=== PATIENT | male | born 1935 | race Hispanic/Latino ===

== ENCOUNTER 2017-06-09 06:31 | Observation (INO) | payer MEDICARE, OTHER ==
[~2017-06-09] VITALS: Ht 172.7 cm; Wt 100.7 kg
--- OUTSIDE RECORDS SUMMARY | 2017-06-09 06:33 | XMS REPORT | Clinical Summary ---
Author Author [facility] Address Unknown Phone Unavailable Care Team Providers Care Environmental Emergencies Assistant Name Role Phone PCP Unavailable Allergies Active Allergy Reactions Severity Noted Date Comments Codeine Nausea And Vomiting Medium 08/23/2015 Pt reports that he is NOT allergic to tylenol, just the codeine Current Medications Prescription Sig. Disp. Refills Start End Date Status Date cloNIDine (CATAPRES-TTS) Place 1 patch onto the Active 0.3 mg/24 hr patch skin once a week. aspirin 81 MG EC tablet Take 81 mg by mouth Active daily. isosorbide dinitrate Take 15 mg by mouth Active (ISORDIL) 30 MG tablet daily. clopidogrel (PLAVIX) 75 Take 75 mg by mouth Active mg tablet daily. amLODIPine (NORVASC) 5 MG Take 5 mg by mouth daily. Active tablet metoprolol (TOPROL-XL) 50 Take 200 mg by mouth Active MG 24 hr tablet daily . omeprazole (PRILOSEC) 20 Take 20 mg by mouth Active MG capsule daily. acarbose (PRECOSE) 25 MG Take 25 mg by mouth 3 Active tablet (three) times daily with meals. atorvastatin (LIPITOR) 40 Take 1 tablet (40 mg 30 tablet 5 08/27/19 08/27/19 MG tablet total) by mouth nightly. 16 17 Active Problems Problem Noted Date Abnormal myocardial perfusion study 08/26/2015 CAD (coronary artery disease) 08/15/2015 Essential hypertension, malignant 08/15/2015 Family History Medical History Relation Name Comments Coronary artery disease Brother Heart disease Father Stroke Father Heart attack Mother Thyroid disease Sister Relation Name Status Comments Brother Father Mother Sister Social History Tobacco Use Types Packs/Day Years Used Date Former Smoker Alcohol Use Drinks/Week oz/Week Comments Yes socially Sex Assigned at Date Recorded Not on file Last Filed Vital Signs Not on file Plan of Treatment Not on file Implants Implanted Type Area Bid Clerk Device Expiration Model / Identifier Date Serial / Lot Synergy 3.0mm X 20mm Stents-Cor N/A: Heart BOSTON 05/30/2016 [id number] Implanted: Qty: 1 on 08/26/2015 by [id number] / Radha Rojas MD / [id number] Results Not on fileafter 06/08/2016
[2017-06-09 07:00] LABS: BASOPHILS # (AUTO) 0.1 (0.0-0.1); BASOPHILS % 0.5 % (0.0-1.0); EOSINOPHILS # (AUTO) 0.2 (0.0-0.4); EOSINOPHILS % 1.9 % (0.0-6.0); HEMATOCRIT 41.9 % (38.2-49.6); HEMOGLOBIN 13.8 g/dL (14.0-18.0); LYMPHOCYTES # (AUTO) 2.7 (1.0-3.2); LYMPHOCYTES % 24.3 % (18.0-39.1); MEAN CORPUSCULAR HEMOGLOBIN 31.5 pg (28-32); MEAN CORPUSCULAR HGB CONC 32.9 g/dL (31-35); MEAN CORPUSCULAR VOLUME 95.7 fL (81-99); MONOCYTES # (AUTO) 1.1 (0.2-0.8); MONOCYTES % 9.3 % (4.4-11.3); NEUTROPHILS # (AUTO) 7.1 (2.1-6.9); NEUTROPHILS % 63.5 % (38.7-80.0); PLATELET COUNT 185 x10e3/uL (140-360); RED BLOOD COUNT 4.38 x10e6/uL (4.3-5.7)
[2017-06-09 07:19] LABS: INR 1.07; PROTHROMBIN TIME 13.1 seconds (11.9-14.5)
[2017-06-09 07:20] LABS: PARTIAL THROMBOPLASTIN TIME 31.6 seconds (23.8-35.5)
[2017-06-09 07:25] LABS: ALANINE AMINOTRANSFERASE 12 IU/L (0-55); ALBUMIN 3.3 g/dL (3.5-5.0); ALBUMIN/GLOBULIN RATIO 0.9 (0.8-2.0); ALKALINE PHOSPHATASE 109 IU/L (40-150); ANION GAP 12.9 mmol/L (8-16); BLOOD UREA NITROGEN 27 mg/dL (7-26); BUN/CREATININE RATIO 10 (6-25); CALCIUM 9.3 mg/dL (8.4-10.2); CARBON DIOXIDE 24 mmol/L (22-29); CHLORIDE 109 mmol/L (98-107); CREATINE KINASE 44 IU/L (30-200); CREATININE, SERUM 2.73 mg/dL (0.72-1.25); EST GLOMERULAR FILTRATION RATE 23 ML/MIN (60-); GLUCOSE 122 mg/dL (74-118); POTASSIUM 4.9 mmol/L (3.5-5.1); SODIUM 141 mmol/L (136-145)
--- NOTE | 2017-06-09 07:33 | Diagnostic Imaging Report ---
PROCEDURE: Frontal and lateral views of the chest. COMPARISON: None. INDICATIONS: CHEST PAIN FINDINGS: Lines/tubes: None. Lungs: Bibasilar airspace opacities. No parenchymal mass. Pleura: There is no pleural effusion or pneumothorax. Heart and mediastinum: The heart and the mediastinum are normal. Bones: No acute bony abnormality. Degenerative changes of the thoracic spine. IMPRESSION: Bibasilar airspace opacities may represent atelectasis or developing pneumonia. Dictated by: Jr Amos M.D. on 06/09/2017 at 7:34 Electronically approved by: Jr Amos M.D. on 06/09/2017 at 7:34
[2017-06-09] MEDS ORDERED: METOPROLOL TARTRATE 25 MG TAB PO SCH ×2 (08:45→21:00)
[2017-06-09] MEDS ORDERED: NITROGLYCERIN 0.4 MG SUBL SL PRN (08:45)
--- OUTSIDE RECORDS SUMMARY | 2017-06-09 08:56 | XMS REPORT ---
Author Author [facility] Address Unknown Phone Unavailable Care Team Providers Care Boiler Room Helper Name Role Phone EDUARD RAMIREZ Unavailable Unavailable Problems This patient has no known problems. Allergies, Adverse Reactions, Alerts This patient has no known allergies or adverse reactions. Medications This patient has no known medications. Results Test Description Test Time Test Comments Text Results Atomic Results Result Comments CHEST 2 VIEWS [place] [address] Patient Name: TONY ARAIZA MR #: [id number] : 1935 Age/Sex: 81/M Req #: [id number] Adm Physician: Ordered by: EDUARD RAMIREZ MD Report #: [id number] Location: ER Room/Bed: Procedure: [id number] DX/CHEST 2 VIEWS Exam Date: 06/09/17 Exam Time: 0700 REPORT STATUS: Signed PROCEDURE: Frontal and lateral views of the chest. COMPARISON: None. INDICATIONS: CHEST PAIN FINDINGS: Lines/tubes: None. Lungs: Bibasilar airspace opacities. No parenchymal mass. Pleura: There is no pleural effusion or pneumothorax. Heart and mediastinum: The heart and the mediastinum are normal. Bones: No acute bony abnormality. Degenerative changes of the thoracic spine. IMPRESSION: Bibasilar airspace opacities may represent atelectasis or developing pneumonia. Dictated by: Rosalie Amos M.D. on 06/09/2017 at 7:34 Electronically approved by: Rosalie Amos M.D. on 03/2017 at 7:34 Dictated By: ROSALIE AMOS MD 3 Transcribed By: SALLY on 06/09/17733 COPY TO: EDUARD RAMIREZ MD
--- OUTSIDE RECORDS SUMMARY | 2017-06-09 08:56 | XMS REPORT | Clinical Summary ---
Author Author [facility] Address Unknown Phone Unavailable Care Team Providers Care Alumni Relations Coordinator Name Role Phone PCP Unavailable Allergies Active [...] Not on file Implants Implanted Type Area Cabin Cleaning Supervisor Device Expiration Model / Identifier Date Serial / Lot Synergy 3.0mm X 20mm Stents-Cor N/A: Heart B[place]ON 05/30/2016 [id number] Implanted: Qty: 1 on 08/26/2015 by [employer] / Radha Rojas MD / [id number] Results Not on fileafter 06/08/2016
[2017-06-09] MEDS ORDERED: CLOPIDOGREL BISULFATE 75 MG TAB PO SCH (09:00)
[2017-06-09] MEDS ORDERED: HYDRALAZINE HCL 20 MG/ML VIAL IV PRN (10:15)
[2017-06-09 11:30] VITALS: BP 159/81
[2017-06-09] MEDS ORDERED: OMEPRAZOLE40 MG (12:33)
[2017-06-09] MEDS ORDERED: AMLODIPINE BESY10 MG PO (12:33)
[2017-06-09] MEDS ORDERED: ASPIR 8181 MG (12:33)
[2017-06-09] MEDS ORDERED: CATAPRES-TTS 11 EACH TD (12:33)
[2017-06-09] MEDS ORDERED: METOPROLOL TART50 MG PO (12:33)
[2017-06-09 15:13] VITALS: BP 159/81
[2017-06-09 15:40] VITALS: BP 146/77
[2017-06-09] MEDS ORDERED: AMLODIPINE BESYLATE 10 MG TAB PO SCH (18:00)
[2017-06-09] MEDS ORDERED: PANTOPRAZOLE SOD 40 MG TABEC PO SCH (18:00)
[2017-06-09] MEDS ORDERED: ASPIRIN 325 MG TAB EC PO SCH (18:00)
[2017-06-09] MEDS ORDERED: CLONIDINE HCL 0.1 MG/24 HR 1 EA PATCH TD SCH (18:00)
[2017-06-09] MEDS ORDERED: CLONIDINE HCL 0.3MG/24 HR PATCH TOP SCH (18:45)
[2017-06-09] MEDS ORDERED: AMLODIPINE BESYLATE 10 MG TAB PO ONE (19:40)
[2017-06-09 20:10] VITALS: BP 148/78
[2017-06-09] MEDS ORDERED: METOPROLOL TARTRATE 50 MG TAB PO SCH (21:00)
--- NOTE | 2017-06-09 21:40 | History and Physical ---
[facility]: At the [facility]. ADMITTING DIAGNOSES 1. Atypical chest pain, rule out myocardial infarction. 2. Hypertension with history of coronary artery disease and chronic kidney disease stage 4. 3. History of aortic aneurysm repair. DISCHARGE DIAGNOSES 1. Atypical chest pain, rule out myocardial infarction. 2. Hypertension with history of coronary artery disease and chronic kidney disease stage 4. 3. History of aortic aneurysm repair. BRIEF HISTORY: Mr. Castillo is an 81-year-old gentleman who had an episode last night of intrascapular upper back pain and heaviness feeling. The feeling had gone away by the time the patient arrived to the ER, but his blood pressure was markedly elevated at 185 systolic and so he was admitted with atypical chest pain, rule out DE and accelerated hypertension. REVIEW OF SYSTEMS: He denies fever, chills or weight loss. He denies sinus congestion or sore throat. Denies any chest pain, but was feeling like the pain in the upper back might be related to his heart. He denies shortness of breath, wheezing or cough. The patient is quite active. He does a lot of yard work. He has been doing some repairs since [place], very active at home. He mows his grass. The patient has had recent stress test by his cathode maker. He denies abdominal pain, nausea, vomiting, diarrhea or melena. Denied dysuria or flank pain. Denies rash or pruritus. He denies joint pain or swelling. Denies bleeding or bruising. He denies headache, vertigo or loss of consciousness. He denies depression, agitation homicidal or suicidal ideation. PAST MEDICAL HISTORY: Significant for hypertension and coronary artery disease. The patient had 2 coronary stents placed a few years ago and is being followed by a cathode maker. He has had a negative stress test within the last year. He also has chronic kidney disease stage 4. MEDICATIONS: Aspirin 81 mg daily. Metoprolol 100 mg daily. Amlodipine 10 mg daily and clonidine, Catapres TTS one patch weekly. ALLERGIES: HE HAS A STATED ALLERGY TO CODEINE. PAST SURGICAL HISTORY: Includes the 2 coronary stents as noted and also an abdominal aortic aneurysm repair. FAMILY HISTORY: Significant for hypertension. SOCIAL HISTORY: The patient is . Kiswahili is his primary language. He does not smoke, drink or use illegal drugs. He is generally independently functioning. PHYSICAL EXAM: PSYCHIATRIC: He is alert and oriented times 3 with normal mood and affect. CONSTITUTIONAL: He has a normal body habitus. Is in no acute distress. VITAL SIGNS: Blood pressure 146/77. It was 184/75 on presentation. Heart rate is 71 and regular. Respiratory rate 20. O2 sat 99% on room air. Temperature 98.1. HEENT: Head is atraumatic. His eyes are anicteric with clear conjunctivae. Ears and nares are without erythema or discharge. Oropharynx is clear. NECK: Is supple with no mass or thyromegaly. LYMPHATIC SYSTEM: He has no palpable cervical, axillary or inguinal adenopathy. CARDIOVASCULAR: His heart has a regular rate and rhythm without murmur or extra heart sounds. He has no carotid bruit. Has no peripheral edema. He has palpable dorsal pedal pulses. RESPIRATORY: Clear to auscultation and percussion with normal respiratory effort. GASTROINTESTINAL: Abdomen is soft without organomegaly, masses or tenderness. Normal bowel sounds present. CUTANEOUS: His skin is warm and dry to touch with no rash or skin breakdown. MUSCULOSKELETAL: His joints are in normal alignment without erythema or swelling. Has no calf tenderness. NEUROLOGIC: Exam is nonfocal with intact cranial nerves and no motor or sensory deficits. DIAGNOSTIC STUDIES: Chest x-ray shows some bibasilar atelectasis. His troponin less than 0.001 and 0.027. His chemistry shows normal electrolytes. CO2 24. Creatinine 2.73. BUN 27 for a GFR of 23. His baseline is unknown although he does state that he has been told he has chronic kidney disease, and it is pretty bad. His calcium is 9.3 and glucose is 122. Transaminases, bilirubin and alkaline phos are all normal. CBC shows a white count of 11.2 with a normal differential. Hemoglobin 13.8, hematocrit 41.9 and platelet count 185,000. IMPRESSION AND PLAN 1. Back pain/atypical chest pain rule out myocardial infarction. The patient is admitted for observation and serial cardiac enzymes. 2. Accelerated hypertension complicated by coronary disease and chronic kidney disease stage 4. The patient received IV hydralazine initially and was restarted on his metoprolol, Norvasc and clonidine patch. His blood pressure came under better control once his medications were started. He also will continue on aspirin and Plavix. 3. For prophylaxis, he will receive Pepcid for GI prophylaxis. HOSPITAL COURSE: The patient was admitted early in the day. He was observed all day long, had serial cardiac enzymes that were negative for myocardial injury. He was asymptomatic for the entire day, and was discharged home to resume a regular diet, to resume all of his regular medications. He can resume activity as tolerated and follow up with his cathode maker within 2 weeks. Job#: [id number]
== END 2017-06-09 21:03 | disposition home or self-care (01) ==
LOC: ER 06:31 → ERHOLD 08:33 → IMCU 11:02
PROVIDERS: ADMIT Internal Medicine; ATTEND Internal Medicine
DX: R07.89 Other chest pain (principal); I13.10 Hypertensive heart and chronic kidney disease without heart failure, with stage 1 through stage 4 chronic kidney disease, or unspecified chronic kidney disease; N18.4 Chronic kidney disease, stage 4 (severe); I25.10 Atherosclerotic heart disease of native coronary artery without angina pectoris
CPT/HCPCS: 36415; 71046; 80053; 82550; 82553; 84484; 85025; 85610; 85730; 93005; 99284; G0378; J0360

== ENCOUNTER 2018-04-16 23:25 | Emergency (ER) | payer MEDICARE ==
[~2018-04-16] VITALS: Ht 172.7 cm; Wt 100.7 kg
[~2018-04-16 23:25] MED LIST: AMLODIPINE BESY10 MG PO; ASPIR 8181 MG; CATAPRES-TTS 11 EACH TD; METOPROLOL TART50 MG PO; OMEPRAZOLE40 MG
--- OUTSIDE RECORDS SUMMARY | 2018-04-16 23:28 | XMS REPORT | Clinical Summary ---
Author Author [facility] Address Unknown Phone Unavailable Care Team Providers Care Microcomputer Support Specialist Name Role Phone Jacqueline Fleming Carolyn PCP Unavailable Allergies Comments Active Allergy Reactions Severity Noted Date Pt reports that he is NOT allergic to tylenol, just the codeine Codeine Nausea And Medium 08/23/2015 Vomiting Medications End Date Status Medication Sig Dispensed Refills Start Date Active cloNIDine (CATAPRES-TTS) Place 1 patch 0 0.3 mg/24 hr patch onto the skin once a week. Active aspirin 81 MG EC tablet Take 81 mg by 0 mouth daily. Active isosorbide dinitrate Take 15 mg by 0 (ISORDIL) 30 MG tablet mouth daily. Active clopidogrel (PLAVIX) 75 Take 75 mg by 0 mg tablet mouth daily. Active amLODIPine (NORVASC) 5 MG Take 5 mg by 0 tablet mouth daily. Active metoprolol (TOPROL-XL) 50 Take 200 mg 0 MG 24 hr tablet by mouth daily . Active omeprazole (PRILOSEC) 20 Take 20 mg by 0 MG capsule mouth daily. Active acarbose (PRECOSE) 25 MG Take 25 mg by 0 tablet mouth 3 (three) times daily with meals. Active Problems Problem Noted Date Abnormal myocardial perfusion study 08/26/2015 CAD (coronary artery disease) 08/15/2015 Essential hypertension, malignant 08/15/2015 Encounters Care Team Description Date Type Specialty Radha Rojas MD Chronic kidney disease, stage 3 (moderate) 07/08/2017 Hospital Radiology Encounter Radha Rojas MD Chronic kidney disease, stage 3 (moderate) (Primary Dx) 06/30/2017 Outside Orders Central Scheduling after 04/15/2017 Family History Medical History Relation Name Comments Coronary artery disease Brother Heart disease Father Stroke Father Heart attack Mother Thyroid disease Sister Relation Name Status Comments Brother Father Mother Sister Social History Date Tobacco Use Types Packs/Day Years Used Former Smoker Alcohol Use Drinks/Week oz/Week Comments Yes socially Sex Assigned at Date Recorded Not on file Industry Job Start Date Occupation Not on file Not on file Not on file Travel End Travel History Travel Start No recent travel history available. Last Filed Vital Signs Not on file Plan of Treatment Not on file Implants Device Identifier Shelf Expiration Date Model / Serial / Lot Implanted Type Area Manufactur er 05/30/2016 [id number] / / [id number] Synergy 3.0mm X 20mm Stents-Cor N/A: Heart [place] Implanted: Qty: 1 on 08/26/2015 by [employer] Radha Rojas MD Procedures Comments Procedure Name Priority Date/Time Associated Diagnosis US RENAL COMPLETE Routine 07/08/2017 Chronic kidney disease, 3:04 PM CDT stage 3 (moderate) after 04/15/2017 Results * US Renal Complete (07/08/2017 3:04 PM CDT) Narrative Performed At FINAL REPORT [employer] [facility] Ultrasound of the Kidneys Clinical History:Chronic kidney disease Discussion: Sonographic evaluation of the kidneys is performed. Right kidney:Measures 11 x 6.1 x 5.3 cm, with cortical thickness of 1.2 cm.Increased cortical echogenicity.No mass.No shadowing calculus. No hydronephrosis. Numerous cysts are seen, measuring up to 5.9 cm. Left kidney: Measures 11.6 x 5.5 x 5.4 cm, with cortical thickness of 1.5 cm.Increased cortical echogenicity.No mass.No shadowing calculus.No hydronephrosis. Numerous cysts are seen measuring up to 1.6 cm. Limited doppler evaluation of bilateral main renal arteries and veins demonstrate patency. Bladder:Unremarkable. Impression: Bilateral renal cysts of varying size and complexity. No definite solid renal mass. Mild renal atrophy with increased cortical echogenicity, in keeping with chronic kidney disease. Signed: Haile Hernandez MD Report Verified Date/Time:07/08/2017 16:27:44 Reading Location: [address] Radiology Reading Room Procedure Note Interface, External Ris In - 07/08/2017 4:29 PM CDT FINAL REPORT Ultrasound of the Kidneys Clinical History: Chronic kidney disease Discussion: Sonographic evaluation of the kidneys is performed. Right kidney: Measures 11 x 6.1 x 5.3 cm, with cortical thickness of 1.2 cm. Increased cortical echogenicity. No mass. No shadowing calculus. No hydronephrosis. Numerous cysts are seen, measuring up to 5.9 cm. Left kidney: Measures 11.6 x 5.5 x 5.4 cm, with cortical thickness of 1.5 cm. Increased cortical echogenicity. No mass. No shadowing calculus. No hydronephrosis. Numerous cysts are seen measuring up to 1.6 cm. Limited doppler evaluation of bilateral main renal arteries and veins demonstrate patency. Bladder: Unremarkable. Impression: Bilateral renal cysts of varying size and complexity. No definite solid renal mass. Mild renal atrophy with increased cortical echogenicity, in keeping with chronic kidney disease. Signed: Haile Hernandez MD Report Verified Date/Time: 07/08/2017 16:27:44 Reading Location: [address] Radiology Reading Room Performing Organization Address City/State/Zipcode Phone Number GE RIS after 04/15/2017 Insurance Payer Benefit Subscriber ID Type Phone Address Plan / Group HUMANA - MEDICARE MGD HUMANA xxxxxxxxx [facility] MEDICARE Contracted ADV Advance Directives For more information, please contact: [facility] [address] [place] [address] Date Inactivated Comments Code Status Date Activated 08/27/2015 11:56 PM Full Code 08/26/2015 5:47 AM This code status was determined by: Patient
--- OUTSIDE RECORDS SUMMARY | 2018-04-16 23:30 | XMS REPORT | Clinical Summary ---
Author Author QU[facility] Organization [facility] Address Unknown Phone Unavailable Care Team Providers Care Clinical Nurse Educator Name Role Phone Jacqueline Fleming Carolyn PCP [...] Lot Implanted Type Area Manufactur er 05/30/2016 [id number] / / [id number] Synergy 3.0mm X 20mm Stents-Cor N/A: Heart [employer] Implanted: Qty: 1 on 08/26/2015 by [employer] Radha Rojas MD Procedures Comments Procedure Name Priority Date/Time Associated Diagnosis US RENAL COMPLETE Routine 07/08/2017 Chronic kidney disease, 3:04 PM CDT stage 3 (moderate) after 04/15/2017 Results * US Renal Complete (07/08/2017 3:04 PM CDT) Narrative Performed At FINAL REPORT [employer] [facility] Ultrasound of the Kidneys Clinical History:Chronic kidney [...] MD Report Verified Date/Time:07/08/2017 16:27:44 Reading Location: [address] Radiology Reading Room Procedure Note Interface, [...] Report Verified Date/Time: 07/08/2017 16:27:44 Reading Location: [address] Radiology Reading Room Performing Organization Address City/State/Zipcode Phone Number GE RIS after 04/15/2017 Insurance Payer Benefit Subscriber ID Type Phone Address Plan / Group HUMANA - MEDICARE MGD HUMANA xxxxxxxxx [facility] MEDICARE Contracted ADV Advance Directives For more information, please contact: [facility] [address] [place] [address] Date Inactivated Comments Code Status Date Activated 08/27/2015 11:56 PM Full Code 08/26/2015 5:47 AM This code status was determined by: Patient
[2018-04-16] MEDS ORDERED: ASPIRIN 81 MG CHEW TAB PO ONE (23:45)
[2018-04-17 00:03] LABS: BASOPHILS # (AUTO) 0.1 (0.0-0.1); BASOPHILS % 0.7 % (0.0-1.0); EOSINOPHILS # (AUTO) 0.3 (0.0-0.4); EOSINOPHILS % 3.1 % (0.0-6.0); HEMATOCRIT 37.1 % (38.2-49.6); HEMOGLOBIN 11.7 g/dL (14.0-18.0); LYMPHOCYTES # (AUTO) 2.7 (1.0-3.2); LYMPHOCYTES % 28.5 % (18.0-39.1); MEAN CORPUSCULAR HEMOGLOBIN 31.2 pg (28-32); MEAN CORPUSCULAR HGB CONC 31.5 g/dL (31-35); MEAN CORPUSCULAR VOLUME 98.9 fL (81-99); MONOCYTES # (AUTO) 0.8 (0.2-0.8); MONOCYTES % 8.6 % (4.4-11.3); NEUTROPHILS # (AUTO) 5.5 (2.1-6.9); NEUTROPHILS % 58.5 % (38.7-80.0); PLATELET COUNT 188 x10e3/uL (140-360); RED BLOOD COUNT 3.75 x10e6/uL (4.3-5.7); RED CELL DISTRIBUTION WIDTH 14.5 % (11.7-14.4)
[2018-04-17 00:17] LABS: ALBUMIN 3.2 g/dL (3.5-5.0); ANION GAP 12.5 mmol/L (8-16); CALCIUM 9.1 mg/dL (8.4-10.2); CREATININE, SERUM 2.45 mg/dL (0.72-1.25); POTASSIUM 4.5 mmol/L (3.5-5.1)
--- NOTE | 2018-04-17 00:21 | Diagnostic Imaging Report ---
EXAMINATION: CHEST SINGLE (PORTABLE) INDICATION: Heaviness in left arm, blurred vision COMPARISON: Chest x-ray 06/09/2017 FINDINGS: AP view TUBES and LINES: None. LUNGS: Central vascular congestion. No consolidations. PLEURA: Possible trace left pleural effusion. No pneumothorax. HEART AND MEDIASTINUM: Mild enlargement of the cardiac silhouette. BONES AND SOFT TISSUES: No acute osseous lesion. Soft tissues are unremarkable. UPPER ABDOMEN: No free air under the diaphragm. IMPRESSION: Mildly enlarged cardiac silhouette with central pulmonary venous congestion. Signed by: DR. Mayco Franklin MD on 04/17/2018 12:18 AM
[2018-04-17 00:23] LABS: CREATINE KINASE MB 0.7 ng/mL (0-5.0)
--- NOTE | 2018-04-17 01:32 | Diagnostic Imaging Report ---
EXAMINATION: Head CT without contrast. HISTORY:Blurred vision. COMPARISON:None. TECHNIQUE: Multidetector axial images were obtained from the foramen magnum to the vertex without contrast. The images were reconstructed using brain and bone algorithms. Thin section brain images were reformatted into coronal and sagittal planes. Dose modulation, iterative reconstruction, and/or weight based adjustment of the mA/kV was utilized to reduce the radiation dose to as low as reasonably achievable. Intravenous contrast: None IMAGE QUALITY: Acceptable. FINDINGS: Skull/scalp: No lytic or blastic. lesions. No surgical changes. Parenchyma: Nonspecific bilateral frontoparietal patchy white matter hypodensity are likely related to small vessel ischemic changes. Cortical-based focal hypodensity in precuneus of left parietal lobe, cuneus of right occipital lobe and right cerebellar hemisphere represents focal encephalomalacia from prior vascular insult or trauma. No acute hemorrhage, mass or acute major vascular territorial infarct. Arteries: No density suggestive of thrombosis. Dural sinuses: No abnormal density suggestive of thrombosis. Ventricles: No hydrocephalus or displacement. Extra-axial spaces: No abnormal density. Brain volume: Generalized age-related cerebral volume loss. Craniocervical junction: No mass, Chiari malformation, or basilar invagination. Sella: No mass. Paranasal/mastoid sinuses: Imaged portions unremarkable. IMPRESSION: 1. No acute intracranial abnormality, particularly no acute hemorrhage, mass or acute major vascular territorial infarct. 2. Multifocal chronic encephalomalacia, particularly in right occipital lobe, left parietal lobe and right cerebellar hemisphere possibly related to prior vascular insult or trauma. 3. Mild supratentorial white matter microvascular ischemic changes. 4. Generalized age-related cerebral volume loss. Signed by: Dr. Chacha Manzano M.D. on 04/17/2018 1:29 AM
--- NOTE | 2018-04-17 03:30 | NUR ---
AWAKE ALERT SKIN W/D RESP NONLAB. NAD NOTED. DENIES ANY SX AT PRESENT. STATES FEELS MUCH BETTER
[2018-04-17 04:26] VITALS: BP 136/72
== END 2018-04-17 03:30 | disposition home or self-care (01) ==
LOC: ER 23:28
DX: I10 Essential (primary) hypertension (principal); H53.8 Other visual disturbances
CPT/HCPCS: 36415; 70450; 71045; 80053; 82550; 82553; 84484; 85025; 93005; 99284

== ENCOUNTER 2021-12-05 08:01 | Inpatient (IN) | payer MEDICARE ==
[~2021-12-05] VITALS: Ht 172.7 cm; Wt 83.0 kg
[~2021-12-05 08:01] MED LIST changes: -ASPIR 8181 MG; +ASPIR 8181 MG PO
[2021-12-05 08:20] LABS: BASOPHILS # (AUTO) 0.1 (0.0-0.1); BASOPHILS % 1.1 % (0.0-1.0); EOSINOPHILS # (AUTO) 0.7 (0.0-0.4); EOSINOPHILS % 5.3 % (0.0-6.0); HEMATOCRIT 40.1 % (38.2-49.6); HEMOGLOBIN 12.8 g/dL (14.0-18.0); LYMPHOCYTES # (AUTO) 3.9 (1.0-3.2); LYMPHOCYTES % 30.9 % (18.0-39.1); MEAN CORPUSCULAR HEMOGLOBIN 32.9 pg (28-32); MEAN CORPUSCULAR HGB CONC 31.9 g/dL (31-35); MEAN CORPUSCULAR VOLUME 103.1 fL (81-99); MONOCYTES % 8.1 % (4.4-11.3); NEUTROPHILS # (AUTO) 6.8 (2.1-6.9); PLATELET COUNT 203 x10e3/uL (140-360); RED BLOOD COUNT 3.89 x10e6/uL (4.3-5.7); RED CELL DISTRIBUTION WIDTH 13.2 % (11.7-14.4)
[2021-12-05 08:38] LABS: ALBUMIN 3.6 g/dL (3.5-5.0); ANION GAP 13.7 mmol/L (8-16); CALCIUM 8.8 mg/dL (8.4-10.2); CREATININE, SERUM 3.19 mg/dL (0.72-1.25); POTASSIUM 4.7 mmol/L (3.5-5.1)
[2021-12-05 08:47] LABS: AMPHETAMINES SCREEN,URINE NEGATIVE (NEGATIVE); BENZODIAZEPINES SCREEN,URINE NEGATIVE (NEGATIVE); PHENCYCLIDINE SCREEN,URINE NEGATIVE (NEGATIVE)
[2021-12-05 08:58] LABS: CREATINE KINASE MB 0.7 ng/mL (0-5.0)
[2021-12-05] MEDS ORDERED: ASPIRIN 81 MG CHEW TAB PO ONE (10:00)
[2021-12-05] MEDS ORDERED: ONDANSETRON HCL INJ 2MG/ML 2ML 2 MG/ML VIAL IV PRN (10:00)
[2021-12-05] MEDS ORDERED: ATORVASTATIN CA20 MG PO (10:15)
[2021-12-05] MEDS ORDERED: IOPAMIDOL 370 MG/ML 100 ML INFUS..BTL INJ ONE (10:15)
[2021-12-05] MEDS ORDERED: CLOPIDOGREL75 MG PO (10:15)
[2021-12-05] MEDS ORDERED: SODIUM CHLORIDE 0.9% 100 ML ONE (10:15)
[2021-12-05 12:37] VITALS: BP 164/74
[2021-12-05 12:38] VITALS: BP 164/74
[2021-12-05 13:59] LABS: CREATININE,URINE RANDOM 50.28 mg/dL (63-166); TOTAL PROTEIN, URINE 26.9 mg/dL (1-14)
[2021-12-05 16:48] LABS: CREATINE KINASE MB 0.8 ng/mL (0-5.0)
[2021-12-05 17:11] VITALS: BP 161/63
[2021-12-05 20:01] VITALS: BP 139/66
[2021-12-05 20:03] VITALS: BP 139/66
[2021-12-05 20:04] VITALS: BP 139/66
[2021-12-05] MEDS: ATORVASTATIN 20 MG TAB PO SCH (21:08)
[2021-12-05] MEDS: AMLODIPINE BESYLATE 10 MG TAB PO SCH (22:48)
[2021-12-05] MEDS: METOPROLOL TARTRATE 50 MG TAB PO SCH (22:49)
[2021-12-06] VITALS (10 sets, daily range): BP systolic 124–159; BP diastolic 54–73
[2021-12-06 05:53] LABS: BASOPHILS # (AUTO) 0.1 (0.0-0.1); BASOPHILS % 1.1 % (0.0-1.0); EOSINOPHILS # (AUTO) 0.7 (0.0-0.4); EOSINOPHILS % 7.2 % (0.0-6.0); HEMATOCRIT 36.8 % (38.2-49.6); HEMOGLOBIN 11.6 g/dL (14.0-18.0); LYMPHOCYTES # (AUTO) 3.3 (1.0-3.2); LYMPHOCYTES % 33.5 % (18.0-39.1); MEAN CORPUSCULAR HEMOGLOBIN 32.6 pg (28-32); MEAN CORPUSCULAR HGB CONC 31.5 g/dL (31-35); MEAN CORPUSCULAR VOLUME 103.4 fL (81-99); MONOCYTES % 10.5 % (4.4-11.3); NEUTROPHILS # (AUTO) 4.6 (2.1-6.9); NEUTROPHILS % 47.2 % (38.7-80.0); PLATELET COUNT 176 x10e3/uL (140-360); RED BLOOD COUNT 3.56 x10e6/uL (4.3-5.7); RED CELL DISTRIBUTION WIDTH 13.2 % (11.7-14.4)
[2021-12-06 06:15] LABS: ANION GAP 12.6 mmol/L (8-16); CALCIUM 8.7 mg/dL (8.4-10.2); CREATININE, SERUM 2.87 mg/dL (0.72-1.25); POTASSIUM 4.6 mmol/L (3.5-5.1)
[2021-12-06 06:42] LABS: CREATINE KINASE MB 0.7 ng/mL (0-5.0)
[2021-12-06] MEDS: ASPIRIN 81 MG CHEW TAB PO SCH (08:34)
[2021-12-06] MEDS: METOPROLOL TARTRATE 50 MG TAB PO SCH (08:37)
[2021-12-06] MEDS: AMLODIPINE BESYLATE 10 MG TAB PO SCH (08:37)
[2021-12-06] MEDS: CLOPIDOGREL BISULFATE 75 MG TAB PO SCH (08:38)
[2021-12-06] MEDS ORDERED: AMLODIPINE BESYLATE 10 MG TAB PO SCH (09:00)
[2021-12-06] MEDS ORDERED: METOPROLOL TARTRATE 50 MG TAB PO SCH (09:00)
[2021-12-06] MEDS: ATORVASTATIN 20 MG TAB PO SCH (21:01)
[2021-12-07] VITALS (9 sets, daily range): BP systolic 123–148; BP diastolic 55–89
[2021-12-07 05:16] LABS: ANION GAP 11.2 mmol/L (8-16); CALCIUM 8.5 mg/dL (8.4-10.2); CREATININE, SERUM 3.33 mg/dL (0.72-1.25); POTASSIUM 5.2 mmol/L (3.5-5.1)
[2021-12-07 05:35] LABS: CHOL/HDL RATIO 2.6 (3.9-4.7); MAGNESIUM 2.1 MG/DL (1.3-2.1); PHOSPHORUS 4.3 MG/DL (2.3-4.7)
[2021-12-07 05:55] LABS: THYROID STIMULATING HORMONE 2.693 uIU/mL (0.350-4.940)
[2021-12-07] MEDS: METOPROLOL TARTRATE 50 MG TAB PO SCH (08:35)
[2021-12-07] MEDS: AMLODIPINE BESYLATE 10 MG TAB PO SCH (08:36)
[2021-12-07] MEDS: CLOPIDOGREL BISULFATE 75 MG TAB PO SCH (09:07)
[2021-12-07] MEDS: ASPIRIN 81 MG CHEW TAB PO SCH (09:08)
[2021-12-07] MEDS ORDERED: TAMSULOSIN HCL 0.4 MG CAP PO NR (09:45)
[2021-12-07] MEDS ORDERED: HYDRALAZINE HCL 20 MG/ML VIAL IV PRN (09:45)
[2021-12-07] MEDS ORDERED: SOD POLYSTYRENE SULFONATE SUSP 15 GM/60 ML BTL PO NR (09:45)
[2021-12-07] MEDS: SODIUM CHLORIDE 0.9% 1000ML 1,000 ML IV SCH ×2 (12:47→22:23)
[2021-12-07] MEDS ORDERED: TAMSULOSIN HCL 0.4 MG CAP PO SCH (21:00)
[2021-12-07] MEDS: ATORVASTATIN 20 MG TAB PO SCH (22:20)
[2021-12-08] VITALS: BP 156/75
[2021-12-08 04:00] VITALS: BP_SYST 124; BP_SYST 156; BP_DIAS 53; BP_DIAS 75
[2021-12-08] MEDS ORDERED: ACETAMINOPHEN 325 MG TAB PO PRN (05:00)
[2021-12-08 05:29] LABS: BASOPHILS # (AUTO) 0.1 (0.0-0.1); EOSINOPHILS # (AUTO) 0.7 (0.0-0.4); EOSINOPHILS % 6.9 % (0.0-6.0); HEMATOCRIT 33.5 % (38.2-49.6); LYMPHOCYTES # (AUTO) 3.4 (1.0-3.2); LYMPHOCYTES % 34.8 % (18.0-39.1); MEAN CORPUSCULAR HEMOGLOBIN 32.9 pg (28-32); MEAN CORPUSCULAR HGB CONC 32.8 g/dL (31-35); MEAN CORPUSCULAR VOLUME 100.3 fL (81-99); MONOCYTES # (AUTO) 0.8 (0.2-0.8); MONOCYTES % 8.6 % (4.4-11.3); NEUTROPHILS # (AUTO) 4.7 (2.1-6.9); NEUTROPHILS % 48.1 % (38.7-80.0); PLATELET COUNT 175 x10e3/uL (140-360); RED BLOOD COUNT 3.34 x10e6/uL (4.3-5.7); RED CELL DISTRIBUTION WIDTH 13.8 % (11.7-14.4)
[2021-12-08 05:51] LABS: ANION GAP 14.1 mmol/L (8-16); CREATININE, SERUM 2.93 mg/dL (0.72-1.25); POTASSIUM 5.1 mmol/L (3.5-5.1)
[2021-12-08 07:58] VITALS: BP 134/53
[2021-12-08] MEDS ORDERED: ONDANSETRON HCL 4 MG ORAL DISINTEGRATING TAB PO PRN (08:30)
[2021-12-08 08:56] VITALS: BP 134/53
[2021-12-08] MEDS: CLOPIDOGREL BISULFATE 75 MG TAB PO SCH (09:59)
[2021-12-08] MEDS: METOPROLOL TARTRATE 50 MG TAB PO SCH (09:59)
[2021-12-08] MEDS: ASPIRIN 81 MG CHEW TAB PO SCH (10:00)
[2021-12-08] MEDS: AMLODIPINE BESYLATE 10 MG TAB PO SCH (10:00)
== END 2021-12-08 10:51 | disposition home or self-care (01) | DRG 300 ==
LOC: ER 08:06 → ERHOLD 10:06 → MED/SURG 11:35
PROVIDERS: ADMIT Internal Medicine; ATTEND Internal Medicine
DX: I71.40 Abdominal aortic aneurysm, without rupture, unspecified (principal); N17.9 Acute kidney failure, unspecified; N18.4 Chronic kidney disease, stage 4 (severe); R07.89 Other chest pain; N14.11 Contrast-induced nephropathy; T50.8X5A Adverse effect of diagnostic agents, initial encounter; I12.9 Hypertensive chronic kidney disease with stage 1 through stage 4 chronic kidney disease, or unspecified chronic kidney disease; I25.10 Atherosclerotic heart disease of native coronary artery without angina pectoris; N28.1 Cyst of kidney, acquired; D64.9 Anemia, unspecified; M19.90 Unspecified osteoarthritis, unspecified site; M25.512 Pain in left shoulder; K86.9 Disease of pancreas, unspecified
CPT/HCPCS: 36415; 71046; 71275; 74174; 76770; 80048; 80053; 80061; 80307; 82550; 82553; 82570; 83690; 83735; 83880; 84100; 84156; 84443; 84484; 85025; 85379; 93005; 94799; 99284; J7030; J7050; Q9967